=== PATIENT | female | born 1970 | race Caucasian/White ===

== ENCOUNTER 2017-06-14 03:21 | Emergency (ER) | payer MEDICAID ==
[~2017-06-14] VITALS: Ht 154.9 cm; Wt 59.0 kg
[2017-06-14] MEDS ORDERED: MAGNESIUM/ALUMINUM HYDROXIDE/SIMETHICONE 30ML UDC PO STA (05:10)
[2017-06-14 07:24] VITALS: BP 118/72
== END 2017-06-14 07:28 | disposition home or self-care (01) ==
LOC: ER 03:26
DX: T54.91XA Toxic effect of unspecified corrosive substance, accidental (unintentional), initial encounter (principal); K30 Functional dyspepsia; Y92.009 Unspecified place in unspecified non-institutional (private) residence as the place of occurrence of the external cause
CPT/HCPCS: 71010; 93005; 99284; Z7610

== ENCOUNTER 2017-12-26 20:21 | Emergency (ER) | payer MEDICAID ==
[~2017-12-26] VITALS: Ht 152.4 cm; Wt 69.0 kg
[2017-12-26] MEDS ORDERED: MORPHINE SULFATE 4 MG/ML CPJ (NOT FOR IM USE) IV STA (21:12)
[2017-12-26] MEDS ORDERED: ONDANSETRON HCL 4MG/2ML VIAL IV STA (21:12)
[2017-12-26] MEDS ORDERED: FAMOTIDINE 20MG/2ML VIAL IV STA (21:12)
[2017-12-26] MEDS ORDERED: MAGNESIUM/ALUMINUM HYDROXIDE/SIMETHICONE 30ML UDC PO STA (21:12)
[2017-12-26] MEDS ORDERED: SODIUM CHLORIDE 0.9% 1,000 ML IV ONE (21:12)
[2017-12-26 21:44] LABS: BASOPHILS % 0.7 % (0.0-2.0); HEMATOCRIT. 34.9 % (36.0-48.0); HEMOGLOBIN. 11.8 g/dL (12.0-16.0); LYMPHOCYTES % 20.6 % (20.0-50.0); MEAN CORPUSCULAR HEMOGLOBIN 27.6 pg (28.0-32.0); MEAN PLATELET VOLUME 7.8 fl (7.4-10.4); MONOCYTES % 10.2 % (2.0-8.0); NEUTROPHILS % 67.5 % (40.0-76.0); PLATELET 362 x1000/uL (130-400); RED BLOOD CELL COUNT 4.26 mill/uL (4.2-5.4); RED CELL DISTRIBUTION WIDTH 14.8 % (11.6-14.6)
[2017-12-26 21:49] LABS: CHLORIDE 103 mEq/L (98-107)
[2017-12-26 21:52] LABS: D-DIMER 0.24 mg/L FEU (<0.50); PROTHROMBIN TIME 9.9 sec (9.4-11.6)
[2017-12-26 21:53] LABS: ETHANOL BLOOD < 10 mg/dL
[2017-12-26 21:54] LABS: CLARITY URINE CLEAR (CLEAR); COLOR URINE YELLOW (YELLOW); KETONES URINE NEGATIVE (NEGATIVE); LEUKOCYTE ESTERASE URINE NEGATIVE (NEGATIVE); NITRITE URINE NEGATIVE (NEGATIVE); OCCULT BLOOD URINE TRACE (NEGATIVE); PROTEIN URINE NEGATIVE (NEGATIVE); SPECIFIC GRAVITY URINE 1.008 (1.005-1.030); UROBILINOGEN URINE 0.2 E.U./dL (0.2-1.0)
[2017-12-26 22:03] LABS: HCG SCREEN NEGATIVE
[2017-12-26 22:14] LABS: *AMPHETAMINES SCREEN URINE NEGATIVE (NEGATIVE); *BARBITURATES SCREEN URINE NEGATIVE (NEGATIVE); *BENZODIAZEPINES SCREEN URINE NEGATIVE (NEGATIVE); *COCAINE SCREEN URINE NEGATIVE (NEGATIVE)
[2017-12-26 22:15] LABS: METHADONE URINE SCREEN NEGATIVE (NEGATIVE); OPIATES URINE SCREEN NEGATIVE (NEGATIVE); PHENCYCLIDINE URINE SCREEN NEGATIVE (NEGATIVE)
[2017-12-26 22:17] LABS: CANNABINOID URINE SCREEN PRESUMTIVE POSITIVE (NEGATIVE)
[2017-12-27 01:35] VITALS: BP 138/83
== END 2017-12-27 02:08 | disposition home or self-care (01) ==
LOC: ER 20:35 → CANBEDREQ 12-27 02:52
DX: T43.621A Poisoning by amphetamines, accidental (unintentional), initial encounter (principal); R07.9 Chest pain, unspecified; R11.0 Nausea; R51 Headache; F32.9 Major depressive disorder, single episode, unspecified; K80.20 Calculus of gallbladder without cholecystitis without obstruction; Z87.891 Personal history of nicotine dependence; Y92.9 Unspecified place or not applicable
CPT/HCPCS: 36415; 71045; 76700; 80053; 80305; 81003; 83690; 83880; 84443; 84484; 84703; 85025; 85379; 85610; 93005; 96374; 96375; 99285; G0482; J2270; J2405; J3490; J7030; 96361